=== PATIENT | female | born 1985 | race Caucasian/White ===

== ENCOUNTER 2017-05-05 00:16 | Emergency (ER) | payer MEDICAID ==
[2017-05-05] MEDS ORDERED: BUPIVACAINE HCL 0.5 % INJ/PF 30 ML SDV INJ ONE (01:10)
[2017-05-05] MEDS ORDERED: LIDOCAINE 2% INJ (20 MG/ML) 20 ML MDV INJ ONE (01:10)
--- NOTE | 2017-05-05 01:20 | ER Document Report ---
ED General - General Chief Complaint: Pelvic Pain Stated Complaint: TOOTHACHE Time Seen by Provider: 05/05/17 01:03 Notes: Patient is a 31-year-old female who presents with 2 complaints. First complaint is of a chipped tooth. She says she chipped her tooth while eating a burger tonight. She says this happened approximately 30 minutes prior to arrival to ED. No difficulty breathing. No bleeding. No fevers. Patient second complaint is of left ovarian pain. She says she has a history of a large ovarian cyst. She has had a right ovary removed. She is currently on the Depo shot. She has not had any irregular periods. No abnormal vaginal bleeding or discharge. She said she has no concerns for sexually transmitted diseases. She says the pain that she is having feels just like her typical ovarian cyst pain except for is been little bit worse over last 2-3 days. No history of torsion. No other complaints at this time. Patient says that she typically takes either Percocet or tramadol for her ovarian cyst pain. Her OB/ [employer] doctor is Dr. Otis romero in [place]. TRAVEL OUTSIDE OF THE [place] IN LAST 30 DAYS: No - Related Data Allergies/Adverse Reactions: clonidine Allergy (Verified 05/05/17 01:32) metoclopramide [From Reglan] Allergy (Verified 05/05/17 01:32) Penicillins Allergy (Verified 05/05/17 01:32) Past Medical History - Social History Smoking Status: Never Smoker Frequency of alcohol use: Occasional Drug Abuse: None Family History: DM, Hypertension, Malignancy Neurological Medical History: Reports: Hx Migraine - Immunizations Immunizations up to date: Yes Review of Systems - Review of Systems Notes: My Normal Review Basic REVIEW OF SYSTEMS: CONSTITUTIONAL : Denies fever, chills, or sweats. Denies recent illness. EENT: Tooth pain CARDIOVASCULAR: Denies chest pain. RESPIRATORY: Denies cough, cold, or chest congestion. Denies shortness of breath, difficulty breathing, or wheezing. GASTROINTESTINAL: Left lower abdominal pain. Denies nausea, vomiting, or diarrhea. GENITOURINARY: Denies difficulty urinating, painful urination, burning, frequency, or blood in urine. FEMALE GENITOURINARY: Denies vaginal bleeding, abnormal or irregular periods. Left lower abdominal pain consistent with her previous ovarian cyst pain. MUSCULOSKELETAL: Denies neck or back pain or joint pain or swelling. SKIN: Denies rash or skin lesions. NEUROLOGICAL: Denies altered mental status or loss of consciousness. Denies headache. Denies weakness or paralysis or loss of use of either side. Denies problems with gait or speech. Denies sensory or motor loss. ALL OTHER SYSTEMS REVIEWED AND NEGATIVE. Physical Exam - Vital signs Vitals: Temp Pulse Resp BP Pulse Ox 98.9 F 101 H 16 136/92 H 99 05/05/17 00:23 05/05/17 00:23 05/05/17 00:23 05/05/17 00:05/05/17 00:23 - Notes Notes: General Appearance: Well nourished, alert, cooperative, no acute distress, mild obvious discomfort. Vitals: reviewed, See vital signs table. Head: no swelling or tenderness to the head Eyes: PERRL, EOMI, Conjuctiva clear Mouth: Patient has a facture left upper canine. No gingival swelling. no bleeding. Abdomen: Normal BS, soft, No rigidity, mild left lower quadrant abdominal tenderness to palpation, No guarding, no rebound Extremities: strength 5/5 in all extremities, good pulses in all extremities, no swelling or tenderness in the extremities, no edema. Skin: warm, dry, appropriate color, no rash Neuro: speech clear, oriented x 3, normal affect, responds appropriately to questions. Course - Re-evaluation Re-evalutation: 05/05/17 03:39 Patient's ultrasound shows no evidence of torsion she continues to have the ovarian cyst which she says is causing her pain. She has had this pain for a long time. We did obtain ultrasound is consistent with painful but worse over last several days to make sure is no evidence of torsion. Informed patient take Tylenol Motrin for pain. She did request some for pain. According to her prescription database report she should have tramadol being that she received a 30 day supply with [address] Delacruz. She also received another prescription April 12 for more tramadol. Patient says she is out of this medication and that she no longer sees Dr. Delacruz and therefore her refills were canceled. I informed the patient I do not feel comfortable prescribing her any further opiate medications being that she has had 11 prescriptions for opiate medications in the last 6 months from 5 different providers. She is understanding of this. Informed patient that we will place her on antibiotic so that she can go see a dentist and hopefully have her tooth treated. I informed her to return to ER immediately if she has fevers, facial swelling, or difficulty breathing. I encourage her stop taking the antibiotic if she develops diarrhea. Patient agrees with plan and she will be discharged home. - Vital Signs Vital signs: Temp Pulse Resp BP Pulse Ox 98.9 F 101 H 16 136/92 H 99 05/05/17 00:23 05/05/17 00:05/05/17 00:05/05/17 00:05/05/17 00:23 Discharge - Discharge Clinical Impression: Pain in tooth Ovarian cyst Qualifiers: Laterality: left Qualified Code(s): N83.202 - Unspecified ovarian cyst, left side Condition: Good Disposition: HOME, SELF-CARE Additional Instructions: Please follow up with your [employer], Dr. Romero, in regards to continued management of your ovarian cyst. Please return to the ER immediately if you develop severe sudden worsening of your pain over your ovarian cyst. Please make an appointment to see your dentist. Please return to the ER if you have facial swelling, difficulty breathing, or fever. Please stop taking the anitbiotic if you develop diarrhea. Prescriptions: Clindamycin HCl 300 mg PO ASDIR #56 capsule Forms: Return to Work
--- NOTE | 2017-05-05 03:44 | RADIOLOGY REPORT (SQ) ---
EXAM DESCRIPTION: U/S NON OB PEL TV W/DOPPLER CLINICAL HISTORY: No significant free fluid. 31 years, Female, left ovarian cyst COMPARISON: None. TECHNIQUE: Transvaginal. LIMITATIONS: None. FINDINGS: 8.8 cm uterus, 3 cm cervical length, right oophorectomy, 5.1 x 2.7 x 3 cm left ovary contains an indeterminate 3.4 x 2 x 2.4 cm cystic lesion, normal vascularity of the left ovary, right ovary is not visualized consistent with history of oophorectomy. IMPRESSION: Indeterminate 3.4 cm cystic component of the left ovary may indicate a hemorrhagic cyst. Ultrasound surveillance recommended in 6-12 weeks. Left ovary is at increased risk for developing torsion.
[2017-05-05 04:00] VITALS: BP 133/87
== END 2017-05-05 04:16 | disposition home or self-care (01) ==
LOC: ER 00:16
DX: K08.89 Other specified disorders of teeth and supporting structures (principal); N83.202 Unspecified ovarian cyst, left side; Z79.3 Long term (current) use of hormonal contraceptives; Z90.721 Acquired absence of ovaries, unilateral; Z88.8 Allergy status to other drugs, medicaments and biological substances; Z88.0 Allergy status to penicillin; Z79.891 Long term (current) use of opiate analgesic
CPT/HCPCS: 99284; 81025; 76830; 93976; 64400; J3490 ×2